=== PATIENT | male | born 1945 | race American Indian/Alaskan Native ===

== ENCOUNTER 2018-12-19 08:56 | Emergency (ER) | payer MEDICARE ==
--- NOTE | 2018-12-19 10:47 | Emergency Department Report ---
ED General Adult HPI - General Chief complaint: Pain General Stated complaint: PAIN ALL OVER Time Seen by Provider: 12/19/18 10:39 Source: patient Mode of arrival: Ambulatory Limitations: No Limitations - History of Present Illness Initial comments: 73-year-old -Russian male with a past medical history of high blood pressure and high cholesterol comes in for complaint of generalized pain that hasn't gone off intermittently for weeks. Patient denies any falls. Patient denies any chest pain no shortness of breathing. Patient does admit to a bdominal pain diastases. Patient reports that his bowel movements are slow but had last bowel movement yesterday. Patient reports he is up-to-date on his colonoscopy. Patient does admit to having BPH. Patient denies any dysuria denies any headache. Patient does complain of left hand swelling that started 2 days ago. Patient last took ibuprofen yesterday he says it helps intermittently. Patient does have a primary care provider Dr. Dann Darling and has not seen him in a couple of months. Onset/Timin -: week(s) Radiation: non-radiation Severity scale (0 -10): 10 Consistency: intermittent Improves with: none Worsens with: none Associated Symptoms: denies: chest pain, cough, fever/chills, headaches, nausea/vomiting, shortness of breath, weakness Treatments Prior to Arrival: none - Related Data Allergies Allergy/AdvReac Type Severity Reaction Status Date / Time No Known Allergies Allergy Unverified 12/19/18 08:59 ED Review of Systems ROS: Stated complaint: PAIN ALL OVER Other details as noted in HPI Constitutional: other (generalized pain) ED Past Medical Hx - Past Medical History Previous Medical History?: Yes Hx Hypertension: Yes - Surgical History Past Surgical History?: Yes Additional Surgical History: Left hip replacement. - Social History Smoking Status: Never Smoker Substance Use Type: None ED Physical Exam - General Limitations: No Limitations General appearance: alert, in no apparent distress - Head Head exam: Present: atraumatic, normocephalic - Eye Eye exam: Present: normal appearance ED Course Vital Signs 12/19/18 12/19/18 09:08 11:52 Temperature 97.8 F Pulse Rate 124 H Respiratory 12 18 Rate Blood Pressure 166/94 [Right] O2 Sat by Pulse 95 Oximetry ED Medical Decision Making - Lab Data Result diagrams: 12/19/18 11:32 12/19/18 11:32 Laboratory Results - last 72 hr 12/19/18 12/19/18 12/19/18 11:32 11:32 11:51 WBC 8.1 RBC 2.60 L Hgb 8.4 L Hct 24.5 L MCV 94 MCH 32 MCHC 34 RDW 14.8 Plt Count 98 L Lymph % (Auto) 19.6 Karnes % (Auto) 8.9 H Eos % (Auto) 2.2 Baso % (Auto) 0.7 Lymph # 1.6 Karnes # 0.7 Eos # 0.2 Baso # 0.1 Seg Neutrophils % 68.6 Seg Neutrophils # 5.6 Sodium 141 Potassium 3.8 Chloride 102.1 Carbon Dioxide 23 Anion Gap 20 BUN 12 Creatinine 0.5 L Estimated GFR > 60 BUN/Creatinine Ratio 24 Glucose 113 H Calcium 9.0 Total Bilirubin 1.40 H AST 35 ALT 12 Alkaline Phosphatase 469 H Total Protein 6.7 Albumin 4.3 Albumin/Globulin Ratio 1.8 Urine Color Roxy Urine Turbidity Clear Urine pH 5.0 Ur Specific Cressey 1.027 Urine Protein 30 mg/dl Urine Glucose (UA) Neg Urine Ketones Neg Urine Blood Mod Urine Nitrite Neg Urine Bilirubin Neg Urine Urobilinogen 4.0 Ur Leukocyte Esterase Neg Urine WBC (Auto) 2.0 Urine RBC (Auto) 4.0 Urine Mucus 2+ - Medical Decision Making 73-year-old -Russian male with a past medical history of high blood pressure and high cholesterol comes in for complaint of generalized pain that hasn't gone off intermittently for weeks. Patient denies any falls. Patient denies any chest pain no shortness of breathing. Patient does admit to abdominal pain diastases. Patient reports that his bowel movements are slow but had last bowel movement yesterday. Patient reports he is up-to-date on his colonoscopy. Patient does admit to having BPH. Patient denies any dysuria denies any headache. Patient does complain of left hand swelling that started 2 days ago. Patient last took ibuprofen yesterday he says it helps intermittently. Patient does have a primary care provider Dr. Dann Darling and has not seen him in a couple of months. Critical care attestation.: If time is entered above; I have spent that time in minutes in the direct care of this critically ill patient, excluding procedure time. ED Disposition Clinical Impression: Generalized pain, Alkaline phosphatase elevation, Hematuria Anemia Qualifiers: Anemia type: unspecified type Qualified Code(s): D64.9 - Anemia, unspecified Disposition: TO HOME OR SELFCARE Is pt being admited?: No Does the pt Need Aspirin: No Condition: Stable Additional Instructions: Take Tylenol as needed for pain management. Follow up with her primary care provider in the next 3-5 days. Also follow up with your urologist I have listed one below for your convenience Referrals: MILLY DARLING MD [Other] - 3-5 Days PARRISH MISHRA MD [Staff Physician] - 3-5 Days
[2018-12-19] MEDS ORDERED: TYLENOL PO ONE (11:23)
[2018-12-19 11:50] LABS: Basophils # (Auto) 0.1 K/mm3 (0.0-0.1); Basophils % (Auto) 0.7 % (0.0-1.8); Eosinophils # (Auto) 0.2 K/mm3 (0.0-0.4); Eosinophils % (Auto) 2.2 % (0.0-4.3); Hematocrit 24.5 % (35.5-45.6); Hemoglobin 8.4 gm/dl (11.8-15.2); Lymphocytes # (Auto) 1.6 K/mm3 (1.2-5.4); Lymphocytes % (Auto) 19.6 % (13.4-35.0); Mean Corpuscular HGB Conc 34 % (32-34); Mean Corpuscular Volume 94 fl (84-94); Monocytes # (Auto) 0.7 K/mm3 (0.0-0.8); Monocytes % (Auto) 8.9 % (0.0-7.3); Red Cell Distribution Width 14.8 % (13.2-15.2)
[2018-12-19 12:06] LABS: Platelet Count 98 K/mm3 (140-440)
[2018-12-19 12:18] LABS: Alanine Aminotransferase 12 units/L (7-56); Albumin 4.3 g/dL (3.9-5); BUN/Creatinine Ratio 24; Blood Urea Nitrogen 12 mg/dL (9-20); Hemolysis Index 56
[2018-12-19 12:30] LABS: Bilirubin,Urine NEG (Negative); Blood,Urine MOD (Negative); Color,Urine Amber (Yellow); Mucus,Urine 2+ /HPF
[2018-12-19 14:06] VITALS: BP 158/92
== END 2018-12-19 14:05 | disposition home or self-care (01) ==
LOC: ED 08:56
DX: D64.9 Anemia, unspecified (principal); R74.8 Abnormal levels of other serum enzymes; R31.9 Hematuria, unspecified; I10 Essential (primary) hypertension; Z98.890 Other specified postprocedural states
CPT/HCPCS: 36415; 80053; 81001; 85025; 99283